=== PATIENT | male | born 2000 | race Hispanic/Latino ===

== ENCOUNTER 2018-02-17 22:59 | Emergency (ER) | payer OTHER ==
[2018-02-17] MEDS: FAMOTIDINE 20 MG TAB PO (23:45)
[2018-02-17] MEDS: diphenhydrAMINE 25 MG CAP PO (23:45)
[2018-02-17] MEDS: predniSONE 20 MG TAB PO (23:45)
== END 2018-02-18 00:08 | disposition home or self-care (01) ==
LOC: M ED 02-18 00:08
DX: T78.40XA Allergy, unspecified, initial encounter (principal); Y92.9 Unspecified place or not applicable; Y93.9 Activity, unspecified
CPT/HCPCS: 99283

== ENCOUNTER 2018-02-18 21:57 | Emergency (ER) | payer OTHER | END 2018-02-18 23:56 | disposition home or self-care (01) | LOC: M ED 21:57 | DX: T78.40XA Allergy, unspecified, initial encounter (principal); Y92.133 Barracks on military base as the place of occurrence of the external cause; Y93.9 Activity, unspecified | CPT/HCPCS: 99283 ==

== ENCOUNTER 2019-11-11 21:25 | Emergency (ER) | payer OTHER ==
[~2019-11-11] VITALS: Ht 172.7 cm; Wt 86.4 kg
[2019-11-11 21:25] VITALS: BP 144/63
[~2019-11-11 21:25] MED LIST: PRED20TA PO
[2019-11-11] MEDS ORDERED: DERMABOND TOPICAL SKIN ADHESIVE TOP ONE (22:00)
== END 2019-11-11 22:16 | disposition home or self-care (01) ==
LOC: M ED 21:25
DX: S61.012A Laceration without foreign body of left thumb without damage to nail, initial encounter (principal); W26.0XXA Contact with knife, initial encounter; Y92.018 Other place in single-family (private) house as the place of occurrence of the external cause